=== PATIENT | female | born 1945 | race Caucasian/White ===

== ENCOUNTER 2017-02-02 11:54 | Observation (INO) | payer MEDICARE, OTHER ==
[~2017-02-02] VITALS: Ht 175.3 cm; Wt 116.2 kg
[~2017-02-02 11:54] MED LIST: ALEVE220 M4 PO; CALCIUM 600 W/V1 TAB; CENTRUM SILVER1 EAC3 PO; CENTRUM SILVER1 EAC4 PO; FISH OIL 1,2001 EAC4 PO; GLUCOSAMINE CH1 EAC6 PO; HYZAAR 100-251 EACH PO; LOW DOSE ASPIRI81 M3 PO; LOW DOSE ASPIRI81 MG; MULTIVITAMIN1 CAP; NAPROSYN250 M1 PO; OMEGA-31000 MG; PREMARIN0.625 MG; RED YEAST RICE600 M2 PO; SYNTHROID175 MC1 PO; SYNTHROID175 MCG; TOPROL XL25 M1 PO; XARELTO20 M2 PO; ZOCOR20 M1 PO
[2017-02-02 12:29] LABS: BASO % 0.3 % (0-2); EOS % 0.4 % (0-7); HCT-HEMATOCRIT 43.6 % (34.0-49.0); HGB-HEMOGLOBIN 14.7 gm/dl (12.0-15.5); IMMATURE GRANULOCYTES ABSOLUTE 0.02 tho/cmm (0-0.03); IMMATURE GRANULOCYTES PERCENT 0.2 % (0-0.3); LYMPH % 14.3 % (20-45); LYMPH ABSOLUTE COUNT 1.3 tho/cmm (0.8-4.5); MCH (MEAN CORPUSCULAR HGB) 31.1 pg (28.0-32.0); MCHC MEAN CORPUSCULAR HGB CONC 33.7 % (32.0-36.0); MCV (MEAN CELL VOLUME) 92.2 fl (82.0-96.0); MEAN PLATELET VOLUME 11.4 cmc (9.4-12.4); MONOCYTE ABSOLUTE COUNT 0.5 tho/cmm (0.0-1.2); NEUTROPHIL ABSOLUTE COUNT 7.1 tho/cmm (1.6-8.0); NEUTROPHIL-AUTOMATED 7.1 tho/cmm (1.6-8.0); NEUTROPHILS % 78.8 % (40-80); PLATELET COUNT 195 tho/cmm (150-450); RED BLOOD COUNT 4.73 mil/cmm (4.00-5.20); RED CELL DISTRIBUTION WIDTH 12.8 % (12.4-16.4)
[2017-02-02 12:45] LABS: ALB/GLOB RATIO 1.2 (0.8-2.0); ALKALINE PHOSPHATASE 74 U/L (33-138); ALT/SGPT 31 U/L (12-78); ANION GAP 10 mmol/L (0-20); AST/SGOT 21 U/L (10-40); BILIRUBIN,TOTAL 1.4 mg/dl (0-1.5); BLOOD UREA NITROGEN 22 mg/dl (6-24); CALCIUM 9.2 mg/dl (8.5-10.5); CARBON DIOXIDE-VENOUS 26 mmol/L (22-32); CHLORIDE 109 mmol/l (96-110); CREATININE 1.16 mg/dl (0.50-1.10); GLUCOSE 125 mg/dL (70-110); LIPASE 188 U/L (73-393); POTASSIUM 3.7 mmol/L (3.7-5.1); SODIUM 141 mmol/L (135-145); eGFR VALUE FOR BLACK 56 mL/Min
[2017-02-02 12:47] LABS: C-REACTIVE PROTEIN <0.3 mg/dl (0-0.9)
[2017-02-02 14:09] LABS: URINE APPEARANCE HAZY; URINE BILIRUBIN NEGATIVE (NEG); URINE BLOOD MODERATE (NEG); URINE COLOR YELLOW; URINE GLUCOSE (UA) NEGATIVE (NEG); URINE KETONE NEGATIVE (NEG); URINE LEUKOCYTE ESTERASE POSITIVE (NEG); URINE NITRITE NEGATIVE (NEG); URINE PROTEIN NEGATIVE (NEG)
[2017-02-02 14:22] LABS: URINE AMORPHOUS 1+; URINE BACTERIA 1+; URINE RBC RARE /[HPF] (0-5); URINE WBC RARE /[HPF] (0-5)
[2017-02-03 05:53] LABS: ALB/GLOB RATIO 1.1 (0.8-2.0); ALBUMIN 3.2 g/dl (3.5-5.0); ALKALINE PHOSPHATASE 58 U/L (33-138); ALT/SGPT 21 U/L (12-78); BILIRUBIN,DIRECT 0.2 mg/dl (0.0-0.3); BILIRUBIN,INDIRECT 0.7 mg/dL (0.0-1.0); BILIRUBIN,TOTAL 0.9 mg/dl (0-1.5); BLOOD UREA NITROGEN 21 mg/dl (6-24); CALCIUM 8.4 mg/dl (8.5-10.5); CARBON DIOXIDE-VENOUS 27 mmol/L (22-32); CHLORIDE 110 mmol/l (96-110); CREATININE 1.13 mg/dl (0.50-1.10); GLUCOSE 102 mg/dL (70-110); SODIUM 144 mmol/L (135-145); eGFR VALUE FOR BLACK 57 mL/Min
[2017-02-03 05:55] LABS: ANION GAP 11 mmol/L (0-20); AST/SGOT 16 U/L (10-40)
[2017-02-03 05:56] LABS: POTASSIUM 4.1 mmol/L (3.7-5.1)
[2017-02-03] MEDS ORDERED: NAPROSYN500 M1 PO (17:11)
[2017-02-03] MEDS ORDERED: CYCLOBENZAPRINE5 M1 PO (17:12)
== END 2017-02-03 18:05 ==
LOC: EDMED 11:54 → EMR2 16:04 → CAR1 16:04
PROVIDERS: Emergency Medicine; Nurse Practitioner; ADMIT Family Medicine
DX: M62.830 Muscle spasm of back (principal); K80.20 Calculus of gallbladder without cholecystitis without obstruction; R74.0 Nonspecific elevation of levels of transaminase and lactic acid dehydrogenase [LDH]; I10 Essential (primary) hypertension; I48.91 Unspecified atrial fibrillation; E03.9 Hypothyroidism, unspecified; M17.0 Bilateral primary osteoarthritis of knee; M16.11 Unilateral primary osteoarthritis, right hip; N17.9 Acute kidney failure, unspecified; Z79.1 Long term (current) use of non-steroidal anti-inflammatories (NSAID); Z79.01 Long term (current) use of anticoagulants; Z79.82 Long term (current) use of aspirin; Z79.899 Other long term (current) drug therapy
CPT/HCPCS: J1170; J1885; J2405; J7030; Q9967